=== PATIENT | female | born 1960 | race Caucasian/White ===

== ENCOUNTER 2021-05-21 14:01 | Emergency (ER) | payer OTHER ==
[2021-05-21 16:28] LABS: BASOPHIL 0.5 % (0-2); EOSINOPHIL 0 % (0-5); HCT 40.5 % (37.0-47.0); HGB 13.3 g/dl (12.5-16.0); LYMPHOCYTE 20.9 % (15-48); MCH 31.3 pg (25.0-31.0); MCHC 32.8 g/dL (32.0-36.0); MCV 95.3 fL (78.0-100.0); MONOCYTE 4.9 % (0-12); MPV 8.9 fL (6.0-9.5); NEUTROPHIL 71.2 % (41-80); NRBC 0; PLT 278 K/uL (150-400); RBC 4.25 M/uL (4.20-5.40); RDW 12.2 % (11.5-14.0); WBC 8.5 K/uL (4.0-10.5)
[2021-05-21 16:55] LABS: POTASSIUM 4.2 mmol/L (3.5-5.1)
[2021-05-21] MEDS ORDERED: MEDROL 4MG DOSEP4 MG PO (18:13)
[2021-05-21] MEDS ORDERED: ZPAK PO (18:18)
== END 2021-05-21 18:40 | disposition home or self-care (01) ==
LOC: FER 14:01
PROVIDERS: Nurse Practitioner Family
DX: U07.1 COVID-19 (principal); Z88.5 Allergy status to narcotic agent
CPT/HCPCS: 36415; 36600; 71045; 80048; 82803; 85025; J7030; Q0244